=== PATIENT | female | born 1960 | race Caucasian/White ===

== ENCOUNTER 2018-08-04 07:45 | Day surgery (SDC) | payer BC ==
[2018-08-03 14:35] LABS: HEMATOCRIT 40.3 % (36.0-48.0); HEMOGLOBIN 13.7 g/dL (12-16); MCH 31.2 pg (26.0-34.0); MCV 91.8 fL (80.0-100.0); RBC 4.39 10x6/uL (4.00-5.40); RDW 12.4 % (11.5-14.5); WBC 6.3 10x3/uL (4.8-10.8)
[~2018-08-04] VITALS: Ht 157.5 cm; Wt 72.6 kg
[~2018-08-04 07:45] MED LIST: CELEXA40 MG PO
[2018-08-04 08:20] VITALS: BP 146/94; Ht 157.5 cm; Wt 72.6 kg
== END 2018-08-04 09:00 | disposition home or self-care (01) ==
LOC: D.OPS 07:45 → D.PAN 09:45 → D.OPS 09:45 → D.PAN 10:45 → D.OPS 11:45
PROVIDERS: Anesthesiology
DX: M19.019 Primary osteoarthritis, unspecified shoulder (principal); Z53.29 Procedure and treatment not carried out because of patient's decision for other reasons